=== PATIENT | male | born 1995 | race Caucasian/White ===

== ENCOUNTER 2018-08-31 13:46 | Emergency (ER) | payer MEDICAID ==
[~2018-08-31] VITALS: Ht 170.2 cm; Wt 97.5 kg
[2018-08-31 20:39] VITALS: BP 127/64
== END 2018-08-31 21:33 | disposition home or self-care (01) ==
LOC: EDBD 13:46 → ER 13:46
DX: M79.672 Pain in left foot (principal)
CPT/HCPCS: 36415; 73630; 85652